=== PATIENT | male | born 1955 | race Caucasian/White ===

== ENCOUNTER 2018-11-06 13:08 | Emergency (ER) | payer SELFPAY ==
[2018-11-06 13:14] VITALS: RESP 18
[2018-11-06] MEDS ORDERED: KETOROLAC 30 MG/ML 1 ML VIAL IVP STA (13:50)
[2018-11-06] MEDS ORDERED: SODIUM CHLORIDE 0.9% 2,000 ML IV STA (13:58)
[2018-11-06] MEDS ORDERED: MORPHINE SULFATE 4 MG/ML SYRINGE IVP STA (13:58)
[2018-11-06] MEDS ORDERED: SODIUM CHLORIDE 0.9% 1,000 ML IV STA (13:58)
[2018-11-06] MEDS ORDERED: ONDANSETRON 4 MG/2 ML VIAL IVP STA (13:59)
--- NOTE | 2018-11-06 14:18 | ED ---
Abdominal Pain HPI - General Chief Complaint: Abdominal Pain Stated Complaint: Back pain Time Seen by Provider: 11/06/18 13:22 Source: patient, RN notes reviewed, old records reviewed Mode of arrival: wheelchair Limitations: no limitations - History of Present Illness Initial Comments: This is a 63 year old male presents with sudden onset of left flank pain and abdominal pain. Patient is here today for his wifes outpatient procedure and developed pain while waintg for his . Patient states he felt nauseated. Patient has no history of kidney stones. - Related Data Previous Rx's Medication Instructions Recorded HYDROcodone/APAP 5-325MG [[place] 1 tab PO Q6HR PRN #10 tab 11/06/18 5-325] Ketorolac [Toradol] 10 mg PO TID #15 tab 11/06/18 Ondansetron Odt [Zofran Odt] 4 mg PO Q8HR PRN #12 tab 11/06/18 Tamsulosin [Flomax] 0.4 mg PO DAILY #15 cap 11/06/18 Allergies Allergy/AdvReac Type Severity Reaction Status Date / Time No Known Allergies Allergy Verified 11/06/18 13:52 Review of Systems ROS Statement: Those systems with pertinent positive or pertinent negative responses have been documented in the HPI. ROS Other: All systems not noted in ROS Statement are negative. Past Medical History Past Medical History: No Reported History History of Any Multi-Drug Resistant Organisms: None Reported Past Surgical History: No Surgical Hx Reported Smoking Status: Never smoker Past Alcohol Use History: Occasional Past Drug Use History: None Reported General Exam - General Exam Comments Initial Comments: 63 year old male, no distress. Limitations: no limitations General appearance: alert, in no apparent distress Head exam: Present: atraumatic, normocephalic, normal inspection Eye exam: Present: normal appearance, PERRL, EOMI. Absent: scleral icterus, conjunctival injection, periorbital swelling ENT exam: Present: normal exam, mucous membranes moist Neck exam: Present: normal inspection. Absent: tenderness, meningismus, lymphadenopathy Respiratory exam: Present: normal lung sounds bilaterally. Absent: respiratory distress, wheezes, rales, rhonchi, stridor Cardiovascular Exam: Present: regular rate, normal rhythm, normal heart sounds. Absent: systolic murmur, diastolic murmur, rubs, gallop, clicks GI/Abdominal exam: Present: soft, tenderness (left CVA tenderness), normal bowel sounds. Absent: distended, guarding, rebound, rigid Extremities exam: Present: normal inspection, full ROM, normal capillary refill. Absent: tenderness, pedal edema, joint swelling, calf tenderness Back exam: Present: normal inspection Neurological exam: Present: alert, oriented X3, CN II-XII intact Psychiatric exam: Present: normal affect, normal mood Skin exam: Present: warm Course Vital Signs 11/06/18 11/06/18 13:12 16:35 Temperature 98.7 F 98.9 F Pulse Rate 64 71 Respiratory 18 18 Rate Blood Pressure 179/90 143/84 O2 Sat by Pulse 99 99 Oximetry Medical Decision Making - Medical Decision Making This is a 63 year old male presents today for left back painand abdominal pain. Patient has CVA tenderness. CT shows 5mm obstructing stone. AFter fluids and pain medication patient is feelting better. Patient will be DC with PCP follow up and urology follow up. Discussed DC with pain medication and flomax. - Lab Data Result diagrams: 11/06/18 13:30 11/06/18 13:30 Lab Results 11/06/18 11/06/18 11/06/18 Range/Units 13:30 13:30 13:30 WBC 8.7 (3.8-10.6) k/uL RBC 5.23 (4.30-5.90) m/uL Hgb 16.1 (13.0-17.5) gm/dL Hct 46.4 (39.0-53.0) % MCV 88.7 (80.0-100.0) fL MCH 30.8 (25.0-35.0) pg MCHC 34.7 (31.0-37.0) g/dL RDW 14.3 (11.5-15.5) % Plt Count 246 (150-450) k/uL Neutrophils % 77 % Lymphocytes % 16 % Monocytes % 4 % Eosinophils % 1 % Basophils % 0 % Neutrophils # 6.7 (1.3-7.7) k/uL Lymphocytes # 1.4 (1.0-4.8) k/uL Monocytes # 0.4 (0-1.0) k/uL Eosinophils # 0.1 (0-0.7) k/uL Basophils # 0.0 (0-0.2) k/uL PT 9.9 (9.0-12.0) sec INR 0.9 (<1.2) APTT 21.7 L (22.0-30.0) sec Sodium 138 (137-145) mmol/L Potassium 4.2 (3.5-5.1) mmol/L Chloride 103 (98-107) mmol/L Carbon Dioxide 22 (22-30) mmol/L Anion Gap 13 mmol/L BUN 14 (9-20) mg/dL Creatinine 1.10 (0.66-1.25) mg/dL Est GFR (CKD-EPI)AfAm 82 (>60 ml/min/1.73 sqM) Est GFR (CKD-EPI)NonAf 71 (>60 ml/min/1.73 sqM) Glucose 175 H (74-99) mg/dL Calcium 10.5 H (8.4-10.2) mg/dL Total Bilirubin 1.1 (0.2-1.3) mg/dL AST 26 (17-59) U/L ALT 33 (21-72) U/L Alkaline Phosphatase 74 (38-126) U/L Total Protein 7.7 (6.3-8.2) g/dL Albumin 4.8 (3.5-5.0) g/dL Amylase 61 (30-110) U/L Lipase 82 (23-300) U/L Urine Color Urine Appearance (Clear) Urine pH (5.0-8.0) Ur Specific [place] (1.001-1.035) Urine Protein (Negative) Urine Glucose (UA) (Negative) Urine Ketones (Negative) Urine Blood (Negative) Urine Nitrite (Negative) Urine Bilirubin (Negative) Urine Urobilinogen (<2.0) mg/dL Ur Leukocyte Esterase (Negative) Urine RBC (0-5) /hpf Urine WBC (0-5) /hpf Urine Mucus (None) /hpf 11/06/18 Range/Units 13:30 WBC (3.8-10.6) k/uL RBC (4.30-5.90) m/uL Hgb (13.0-17.5) gm/dL Hct (39.0-53.0) % MCV (80.0-100.0) fL MCH (25.0-35.0) pg MCHC (31.0-37.0) g/dL RDW (11.5-15.5) % Plt Count (150-450) k/uL Neutrophils % % Lymphocytes % % Monocytes % % Eosinophils % % Basophils % % Neutrophils # (1.3-7.7) k/uL Lymphocytes # (1.0-4.8) k/uL Monocytes # (0-1.0) k/uL Eosinophils # (0-0.7) k/uL Basophils # (0-0.2) k/uL PT (9.0-12.0) sec INR (<1.2) APTT (22.0-30.0) sec Sodium (137-145) mmol/L Potassium (3.5-5.1) mmol/L Chloride (98-107) mmol/L Carbon Dioxide (22-30) mmol/L Anion Gap mmol/L BUN (9-20) mg/dL Creatinine (0.66-1.25) mg/dL Est GFR (CKD-EPI)AfAm (>60 ml/min/1.73 sqM) Est GFR (CKD-EPI)NonAf (>60 ml/min/1.73 sqM) Glucose (74-99) mg/dL Calcium (8.4-10.2) mg/dL Total Bilirubin (0.2-1.3) mg/dL AST (17-59) U/L ALT (21-72) U/L Alkaline Phosphatase (38-126) U/L Total Protein (6.3-8.2) g/dL Albumin (3.5-5.0) g/dL Amylase (30-110) U/L Lipase (23-300) U/L Urine Color Yellow Urine Appearance Cloudy (Clear) Urine pH 5.5 (5.0-8.0) Ur Specific [place] 1.022 (1.001-1.035) Urine Protein Trace H (Negative) Urine Glucose (UA) Trace H (Negative) Urine Ketones Negative (Negative) Urine Blood Large H (Negative) Urine Nitrite Negative (Negative) Urine Bilirubin Negative (Negative) Urine Urobilinogen <2.0 (<2.0) mg/dL Ur Leukocyte Esterase Negative (Negative) Urine RBC >182 H (0-5) /hpf Urine WBC 4 (0-5) /hpf Urine Mucus Few H (None) /hpf - Radiology Data Radiology results: report reviewed Acute obstructive uropathy in the mid left hydroureter nephrosis secondary to a 5 mm left mid ureter calculus. Moderate headaches U ptosis lifting for hepatic masses. Nonobstructing left renal calculus bilateral nonspecific. Her stranding. Disposition Clinical Impression: Ureteral stone Disposition: HOME SELF-CARE Condition: Good Instructions (If sedation given, give patient instructions): Ureteral Stones (ED) Additional Instructions: Patient has a restaurant plenty of fluids. Take meds as prescribed. Return to the emergency department if any alarming signs or symptoms occur. Prescriptions: Tamsulosin [Flomax] 0.4 mg PO DAILY #15 cap HYDROcodone/APAP 5-325MG [[place] 5-325] 1 tab PO Q6HR PRN #10 tab PRN Reason: Pain Ketorolac [Toradol] 10 mg PO TID #15 tab Ondansetron Odt [Zofran Odt] 4 mg PO Q8HR PRN #12 tab PRN Reason: Pain Is patient prescribed a controlled substance at d/c from ED?: Yes If prescribed controlled substance>3 days was MAPS reviewed?: Prescribed <3 Days If opioid is for acute pain is fill amount 7 days or less?: Yes If Rx opioid, was Start Talking consent form obtained?: Yes Referrals: None,Stated [Primary Care Provider] - 1-2 days Richard Jones MD [STAFF PHYSICIAN] - 1-2 days Time of Disposition: 16:10
[2018-11-06 14:21] LABS: Basophils % (A) 0 %; Eosinophils # (A) 0.1 k/uL (0-0.7); Eosinophils % (A) 1 %; HCT 46.4 % (39.0-53.0); HGB 16.1 gm/dL (13.0-17.5); Lymphocytes # (A) 1.4 k/uL (1.0-4.8); Lymphocytes % (A) 16 %; MCH 30.8 pg (25.0-35.0); MCHC 34.7 g/dL (31.0-37.0); MCV 88.7 fL (80.0-100.0); Mean Platelet Volume 8.3; Monocytes # (A) 0.4 k/uL (0-1.0); Monocytes % (A) 4 %; Neutrophils # (A) 6.7 k/uL (1.3-7.7); Neutrophils % (A) 77 %; Platelet Count 246 k/uL (150-450); RBC 5.23 m/uL (4.30-5.90); RDW 14.3 % (11.5-15.5); WBC 8.7 k/uL (3.8-10.6)
[2018-11-06 14:27] LABS: Albumin 4.8 g/dL (3.5-5.0); Appearance,Urine Cloudy (Clear); Bilirubin,Urine Negative (Negative); Blood,Urine Large (Negative); Calcium 10.5 mg/dL (8.4-10.2); Color,Urine Yellow; Glucose,Urine (UA) Trace (Negative); Ketones,Urine Negative (Negative); Leukocyte Esterase,Urine Negative (Negative); Mucus,Urine Few /hpf; Nitrite,Urine Negative (Negative); PH, Urine 5.5 (5.0-8.0); Potassium 4.2 mmol/L (3.5-5.1); Protein,Urine Trace (Negative); RBC,Urine >182 /hpf (0-5); Specific Gravity,Urine 1.022 (1.001-1.035); Total Bilirubin 1.1 mg/dL (0.2-1.3); Total Protein 7.7 g/dL (6.3-8.2); Urobilinogen,Urine <2.0 mg/dL (<2.0); WBC,Urine 4 /hpf (0-5)
--- NOTE | 2018-11-06 14:32 | XR ---
EXAMINATION TYPE: XR KUB DATE OF EXAM: 11/06/2018 COMPARISON: None INDICATION: Flank pain TECHNIQUE: Single view abdomen upright view FINDINGS: There is some linear areas of air which are nonspecific. This is not clearly bowel which is most like ly. There is some normal bowel gas within the colon. Psoas margins are not well visualized. No free air is identified under the diaphragm. No suspicious d ifferential air-fluid levels are present. No organomegaly is present. IMPRESSION: 1. Nonspecific abdomen. There is some linear is not definitely confirmed as bowel gas in the right mi dabdomen, the contralateral side for the patient's pain. Consider CT abdomen pelvis with intravenous contrast for additional workup.
[2018-11-06 14:44] LABS: INR 0.9 (<1.2); Partial Thromboplastin Time 21.7 sec (22.0-30.0); Prothrombin Time 9.9 sec (9.0-12.0)
--- NOTE | 2018-11-06 15:42 | CT ---
EXAMINATION TYPE: CT abdomen pelvis wo con DATE OF EXAM: 11/06/2018 COMPARISON: X-ray of the same date HISTORY: Bilateral pelvic pain, left flank pain CT DLP: 647.5 mGycm Automated exposure control for dose reduction was used. TECHNIQUE: Helical acquisition of images was performed from the lung bases through the pelvis. FINDINGS: LUNG BASES: Minimal bibasilar subsegmental dependent atelectasis. Heart is enlarged. Very small hiata l hernia is seen. LIVER/GB: Hepatic parenchyma is diffusely hypoattenuated in comparison to that of the spleen, most co mmonly seen in hepatic steatosis. This finding limits evaluation for hepatic masses. No gross evidenc e of hepatic mass is seen. No intrahepatic biliary ductal dilatation. No cholelithiasis. PANCREAS: No significant abnormality is seen. SPLEEN: Spleen is prominent in size but does not meet criteria for spinal megaly. Additionally there are benign-appearing splenic granulomas and splenule noted. ADRENALS: No significant abnormality is seen. KIDNEYS: There is mild left hydroureteronephrosis secondary to a meet ureteral calculus measuring 5 m m that is obstructing. There is mild bilateral perinephric fat stranding, left asymmetrically greater than right. There are bilateral renal cysts measuring up to 6.6 cm on the right and 5.7 cm on the le ft. Additional punctate nonobstructing calculus of the left lower pole the kidney is seen within a mi nor calyx. FREE AIR: No free air is visualized REPRODUCTIVE ORGANS: Prostate gland is enlarged and lobulated impressing on the urinary bladder. URINARY BLADDER: No calculi are seen. There is impression on the posterior inferior bladder by an en larged and lobulated prostate gland. ADENOPATHY: No greater than 1 cm short axis lymph node in the abdomen or pelvis. OSSEOUS STRUCTURES: Mild multilevel degenerative changes of the right BOWEL: No dilated large or small bowel. OTHER: There are fat filled patulous bilateral inguinal rings. IMPRESSION: 1. ACUTE OBSTRUCTIVE UROPATHY WITH MILD LEFT HYDROURETERONEPHROSIS SECONDARY TO AN OBSTRUCTING 5 MM L EFT MID URETERAL CALCULUS. 2. MODERATE HEPATIC STEATOSIS, LIMITING EVALUATION FOR HEPATIC MASSES. 3. ADDITIONAL NONOBSTRUCTING LEFT RENAL CALCULUS, BILATERAL NONSPECIFIC PERINEPHRIC FAT STRANDING (LE FT GREATER THAN RIGHT) AND MULTIPLE BILATERAL RENAL CYSTS.
[2018-11-06] MEDS ORDERED: ONDANSETRON 4 MG ODT STARTER PACK 2 TAB BTL PO STA (16:13)
[2018-11-06] MEDS ORDERED: TAMSULOSIN 0.4 MG CAP.ER.24H PO STA (16:13)
[2018-11-06] MEDS ORDERED: ACET/COD 300 MG/30 MG STARTER PACK 6 TAB BTL PO STA (16:13)
[2018-11-06 16:36] VITALS: BP 143/84; PULSE 71; TEMP 98.9
== END 2018-11-06 16:36 | disposition home or self-care (01) ==
LOC: EC 13:08
DX: N13.2 Hydronephrosis with renal and ureteral calculous obstruction (principal)
CPT/HCPCS: 36415; 80053; 82150; 83690; 85025; 85610; 85730; 81001; 74018; 74176; 99285; 96374; 96375 ×2; 96361 ×2; J2270; J2405; J1885; S0119

== ENCOUNTER → 2023-10-24 | Outpatient (CLI) | payer MEDICARE ==
[2023-10-24 15:32] LABS: African American GFR (CKD) 83 (>60 ml/min/1.73 sqM); Blood Urea Nitrogen 16 mg/dL (9-20); Non-African American GFR(CKD) 72 (>60 ml/min/1.73 sqM)
--- NOTE | 2023-10-24 17:04 | CT ---
EXAMINATION TYPE: CT abdomen wo/w con CT DLP: 1621.7 mGycm, Automated exposure control for dose reduction was used. DATE OF EXAM: 10/24/2023 4:05 PM COMPARISON: CT abdomen pelvis most recent from 11/06/2018 CLINICAL INDICATION:Male, 68 years old with history of N28.9 DISORDER KIDNEY R10.84 ABDOMINAL PAIN; R enal cyst history TECHNIQUE: Axial CT abdomen wo/w con;Sagittal and coronal reformats were created on a separate works tation. Contrast used:100 ml mL of Isovue 300 without and with IV Contrast, (none if empty) Oral contrast used: with Oral Contrast (none if empty) FINDINGS: LOWER CHEST: Unremarkable ABDOMEN LIVER: Diffusely hypoattenuating parenchyma. GALLBLADDER AND BILE DUCTS: Unremarkable. PANCREAS: Unremarkable. SPLEEN: Unremarkable. ADRENAL GLANDS: Unremarkable. KIDNEYS AND URETERS: Bilateral renal calculi 2 3 mm on the right and millimeters on the left. No evid ence for obstructive uropathy. Bilateral renal cysts measuring up to 7.2 cm on the right and 6.5 cm l eft. No solid renal lesions visualized. STOMACH AND BOWEL: No evidence of bowel obstruction. Scattered colonic diverticula present. The PERITONEUM/RETROPERITONEUM: No evidence of pneumoperitoneum or free fluid. VASCULATURE: No evidence of aortic aneurysm. MUSCULOSKELETAL: No acute osseous abnormalities LYMPH NODES: No gross evidence for lymphadenopathy. SOFT TISSUE/ABDOMINAL WALL: Unremarkable IMPRESSION: 1. No evidence for obstructive uropathy or renal mass. 2. Bilateral nonobstructing renal calculi. 3. Bilateral simple appearing renal cysts. 4. Hepatic steatosis. 5. Colonic diverticulosis.
== END | disposition home or self-care (01) ==
LOC: RADCTMAIN 14:51
PROVIDERS: ATTEND Family Medicine
DX: N20.0 Calculus of kidney (principal); N28.1 Cyst of kidney, acquired; K76.0 Fatty (change of) liver, not elsewhere classified; K57.30 Diverticulosis of large intestine without perforation or abscess without bleeding
CPT/HCPCS: 82565; 84520; 74170; 36415; Q9967

== ENCOUNTER 2024-03-19 06:54 | Observation (INO) | payer MEDICARE ==
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
[2024-03-19 07:52] LABS: Basophils % (A) 0 %; Eosinophils # (A) 0.1 k/uL (0-0.7); Eosinophils % (A) 1 %; HCT 43.5 % (39.0-53.0); HGB 14.8 gm/dL (13.0-17.5); Lymphocytes # (A) 1.6 k/uL (1.0-4.8); Lymphocytes % (A) 26 %; MCH 30.4 pg (25.0-35.0); MCHC 34.1 g/dL (31.0-37.0); MCV 89.2 fL (80.0-100.0); Mean Platelet Volume 8.3; Monocytes # (A) 0.3 k/uL (0-1.0); Monocytes % (A) 5 %; Neutrophils % (A) 66 %; Platelet Count 224 k/uL (150-450); RBC 4.87 m/uL (4.30-5.90); RDW 12.3 % (11.5-15.5)
[2024-03-19 08:05] LABS: ALT 26 U/L (4-49); AST 28 U/L (17-59); African American GFR (CKD) 89 (>60 ml/min/1.73 sqM); Albumin 4.3 g/dL (3.5-5.0); Alkaline Phosphatase 78 U/L (38-126); Anion Gap 7 mmol/L; Blood Urea Nitrogen 19 mg/dL (9-20); Calcium 9.3 mg/dL (8.4-10.2); Carbon Dioxide 21 mmol/L (22-30); Chloride 105 mmol/L (98-107); Glucose 239 mg/dL (74-99); Lithium 0.3 mmol/L; Non-African American GFR(CKD) 77 (>60 ml/min/1.73 sqM); Potassium 3.7 mmol/L (3.5-5.1); Sodium 133 mmol/L (137-145); Total Protein 6.6 g/dL (6.3-8.2)
[2024-03-19 08:10] LABS: Valproic Acid (Depakene) 35.6 ug/mL
[2024-03-19 09:24] LABS: Appearance,Urine Clear (Clear); Bilirubin,Urine Negative (Negative); Blood,Urine Negative (Negative); Color,Urine Yellow; Glucose,Urine (UA) 3+ (Negative); Ketones,Urine Negative (Negative); Leukocyte Esterase,Urine Negative (Negative); Nitrite,Urine Negative (Negative); PH, Urine 5.5 (5.0-8.0); Protein,Urine Trace (Negative); Specific Gravity,Urine 1.022 (1.001-1.035); Urobilinogen,Urine <2.0 mg/dL (<2.0)
[2024-03-19 09:48] LABS: Amphetamine Screen,Urine Not Detected (NotDetected); Barbiturate Screen,Urine Not Detected (NotDetected); Benzodiazepines Screen,Urine Not Detected (NotDetected); Cocaine Screen,Urine Not Detected (NotDetected); Methadone Screen, Urine Not Detected (NotDetected); Opiate Screen,Urine Not Detected (NotDetected); Oxycodone Screen, Urine Not Detected (NotDetected); Phencyclidine Screen,Urine Not Detected (NotDetected); Tricyclic Antidepressant,Urine Detected (NotDetected); Urn Cannabinoid Scrn Not Detected (NotDetected)
[2024-03-19] MEDS: CALCIUM CARBONATE 500 MG CHEWABLE PO STA (10:50)
[2024-03-19] MEDS: FAMOTIDINE 20 MG TAB PO STA (10:50)
[2024-03-19] MEDS ORDERED: ONDANSETRON 4 MG/2 ML VIAL IVP PRN (13:31)
[2024-03-19] MEDS ORDERED: NALOXONE 0.4 MG/ML 1 ML VIAL IV PRN (13:31)
[2024-03-19] MEDS ORDERED: KETOROLAC 15 MG/ML 1 ML VIAL IVP PRN (13:31)
[2024-03-19] MEDS ORDERED: IBUPROFEN 400 MG TAB PO PRN (13:31)
--- NOTE | 2024-03-19 14:06 | XR ---
EXAMINATION TYPE: XR chest 2V DATE OF EXAM: 03/19/2024 1:56 PM COMPARISON: None TECHNIQUE: XR chest 2V Frontal and lateral views of the chest. CLINICAL INDICATION:Male, 68 years old with history of COVID; FINDINGS: Lungs/Pleura: There is no evidence of pleural effusion, focal consolidation, or pneumothorax. Pulmonary vascularity: Unremarkable. Heart/mediastinum: Cardiomediastinal silhouette is unremarkable. Musculoskeletal: No acute osseous pathology. IMPRESSION: No acute cardiopulmonary disease/process. [facility], , 03/19/2024 2:03 PM
[2024-03-19] MEDS ORDERED: DEXTROSE 50% SYRINGE 50 ML IVP PRN ×2 (15:15)
[2024-03-19 17:30] LABS: Glucose,Whole Blood 258 mg/dL (70-110)
[2024-03-19] MEDS: INSULIN ASPART (NovoLOG) 100 UNIT/ML VIAL SQ SCH (18:01)
[2024-03-19] MEDS: ACETAMINOPHEN TAB 325 MG TAB PO PRN (20:17)
[2024-03-19] MEDS: TAMSULOSIN 0.4 MG CAP.ER.24H PO SCH (20:18)
[2024-03-19] MEDS: LITHIUM CARBONATE ER 450 MG TABLET.ER PO SCH (20:18)
[2024-03-19 21:18] LABS: Glucose,Whole Blood 205 mg/dL (70-110)
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
[2024-03-20 06:15] LABS: Glucose,Whole Blood 219 mg/dL (70-110)
[2024-03-20 08:59] LABS: Basophils # (A) 0.01 X 10*3/uL (0.00-0.10); Basophils % (A) 0.2 %; Eosinophils # (A) 0.09 X 10*3/uL (0.04-0.35); Eosinophils % (A) 1.6 %; HCT 44.8 % (39.6-50.0); HGB 15.7 g/dL (13.0-17.0); Lymphocytes # (A) 1.62 X 10*3/uL (0.90-5.00); Lymphocytes % (A) 27.9 %; MCH 30.5 pg (27.0-32.0); Mean Platelet Volume 11.6 FL (9.5-12.2); Monocytes # (A) 0.43 X 10*3/uL (0.20-1.00); Monocytes % (A) 7.4 %; NRBC Per 100 WBC 0 X 10*3/uL (0.00-0.01); Neutrophils # (A) 3.63 X 10*3/uL (1.80-7.70); Neutrophils % (A) 62.6 %; Platelet Count 222 X 10*3/uL (140-440); RBC 5.15 X 10*6/uL (4.40-5.60); RDW 12.3 % (11.5-14.5)
[2024-03-20] MEDS: metFORMIN 500 MG TAB PO SCH (09:37)
[2024-03-20] MEDS: DIVALPROEX ER 500 MG TAB.ER.24H PO SCH (09:37)
[2024-03-20 10:10] LABS: BUN/Creat Ratio 12.45 Ratio (12.00-20.00); Blood Urea Nitrogen 13.7 mg/dL (9.0-27.0); Chloride 106 mmol/L (96-109); Glucose 263 mg/dL (70-110); Potassium 3.8 mmol/L (3.5-5.5); Sodium 139 mmol/L (135-145)
[2024-03-20 10:11] LABS: ALT 22 U/L (10-49); AST 19 U/L (14-35); Albumin 4.5 g/dL (3.8-4.9); Albumin/Globulin Ratio 1.96 Ratio (1.60-3.17); Alkaline Phosphatase 77 U/L (41-126); Calcium 9.4 mg/dL (8.7-10.3); Carbon Dioxide 20.1 mmol/L (21.6-31.8); Globulin 2.3 g/dL (1.6-3.3); Total Bilirubin 0.6 mg/dL (0.3-1.2); Total Protein 6.8 g/dL (6.2-8.2)
[2024-03-20 12:46] LABS: Glucose,Whole Blood 265 mg/dL (70-110)
[2024-03-20] MEDS: TAMSULOSIN 0.4 MG CAP.ER.24H PO SCH (12:48)
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
--- NOTE | 2024-03-20 13:29 | P.PN ---
Subjective Progress Note Date: 03/20/24 Principal diagnosis: Reason for follow-up is COVID-19 Patient is a 68-year-old male who apparently has been sent to the ER for evaluation of psychiatric evaluation as the patient was having increasing anger and homicidal ideation, patient did tested positive for COVID-19 prompted this consultation. On today's evaluation that is 03/20/2024,the patient remains to be afebrile, patient is on room air not requiring supplemental oxygen and denies any shortness of breath no chest pain or cough.Patient denies having any nausea or vomiting, no abdominal pain and no diarrhea has been reported Patient white count is 5.80, creatinine is 1.1 Objective - Vital Signs Vital signs: Vital Signs Temp 98.1 F 03/20/24 07:02 Pulse 86 03/20/24 07:02 Resp 17 03/20/24 07:02 BP 147/96 03/20/24 07:02 Pulse Ox 100 03/20/24 07:02 FiO2 Intake & Output 03/19/24 03/20/24 03/20/24 18:59 06:59 18:59 Output Total 800 Balance -800 Weight 88.451 kg 88.451 kg Output: Urine 800 Straight 800 - Exam GENERAL DESCRIPTION: An elderly male lying in bed in no distress RESPIRATORY SYSTEM: Unlabored breathing , decreased breath sounds at bases HEART: S1 S2 regular rate and rhythm , ABDOMEN: Soft , no tenderness EXTREMITIES: No edema feet - Labs CBC & Chem 7: 03/20/24 05:13 03/20/24 05:13 Labs: Abnormal Lab Results - Last 24 Hours (Table) 03/19/24 03/19/24 03/20/24 Range/Units 17:19 21:17 05:13 Carbon Dioxide (21.6-31.8) mmol/L Anion Gap (4.00-12.00) mmol/L Glucose (70-110) mg/dL POC Glucose (mg/dL) 258 H 205 H (70-110) mg/dL Hemoglobin A1c 7.6 H (<=6.0) % 03/20/24 03/20/24 03/20/24 Range/Units 05:13 06:14 12:45 Carbon Dioxide 20.1 L (21.6-31.8) mmol/L Anion Gap 12.90 H (4.00-12.00) mmol/L Glucose 263 H (70-110) mg/dL POC Glucose (mg/dL) 219 H 265 H (70-110) mg/dL Hemoglobin A1c (<=6.0) % Assessment and Plan (1) COVID-19 Current Visit: Yes Status: Acute Code(s): U07.1 - COVID-19 SNOMED Code(s): 458458021 Plan: 1patient presented to hospital with anger and homicidal ideation, patient did not have any fever did not have any respiratory symptoms chest x-ray was negative for acute infiltrate however he did tested positive for COVID-19 more of incidental finding as the patient currently not behaving as acute COVID-19 infection 2-no need for any specific therapy for this positive COVID-19 test 3-patient will need 5 days of isolation total from positive test per institution policy Dictation was produced using [employer] dictation software. please excuse any grammatical, word or spelling errors. Time with Patient: Less than 30
[2024-03-20 15:09] LABS: Appearance,Urine Clear (Clear); Bilirubin,Urine Negative (Negative); Blood,Urine Negative (Negative); Color,Urine Colorless; Glucose,Urine (UA) 2+ (Negative); Ketones,Urine Negative (Negative); Leukocyte Esterase,Urine Negative (Negative); Nitrite,Urine Negative (Negative); Protein,Urine Negative (Negative); Specific Gravity,Urine 1.007 (1.001-1.035); Urobilinogen,Urine <2.0 mg/dL (<2.0)
[2024-03-20] MEDS: QUEtiapine 50 MG TAB PO STA (15:25)
[2024-03-20 17:26] LABS: Glucose,Whole Blood 110 mg/dL (70-110)
[2024-03-20 20:45] LABS: Glucose,Whole Blood 126 mg/dL (70-110)
[2024-03-20] MEDS: QUEtiapine 100 MG TAB PO SCH (21:38)
[2024-03-21 06:19] LABS: Glucose,Whole Blood 119 mg/dL (70-110)
[2024-03-21] MEDS: QUEtiapine 50 MG TAB PO PRN (07:18)
--- NOTE | 2024-03-21 08:46 | PN ---
PROGRESS NOTE DATE OF SERVICE: 03/20/2024 SUBJECTIVE: This is a 68-year-old gentleman, who was admitted with COVID-19 and psychosis. He is being closely monitored. No chest pain. No palpitations. No fever. D-dimer is negative. PHYSICAL EXAMINATION: VITAL SIGNS: Pulse is 86, blood pressure ntd, respirations 17. CHEST: Clear. CARDIOVASCULAR: S1, S2. ABDOMEN: Soft. LABORATORY DATA: Reviewed. ASSESSMENT: 1. Acute COVID-19 infection with severe diarrhea. 2. Diabetes mellitus, type 2. 3. Psychosis, bipolar. 4. Hyponatremia. RECOMMENDATIONS AND DISCUSSION: I recommend to continue current medications, continue symptomatic treatment. Otherwise, closely follow with Psych. Continue rest of medications. Monitor blood pressure closely. Further recommendations to follow. ANAL / JEANIEN: [id number] / MTDD
[2024-03-21 11:36] LABS: Glucose,Whole Blood 122 mg/dL (70-110)
--- NOTE | 2024-03-21 13:33 | P.PN ---
Progress Note - Text Progress Note Date: 03/21/24 Interval History: Patient was seen today for psychiatric follow up. he was started on seroquel s cheudled at night time and prn dosing. he has been taking his medications, pt needed dose of Seroquel prn this morning for agitation and manic symptoms. Patient was seen today laying in bed, he was awoken from his nap. He appears to be more polite today with contract technical writer more directable, continues to ramble at times and joke around. States that he is doing a bit better today overall however was fairly nonspecific about his symptoms. Continues to minimize his need for hospitalization, mildly improving insight and judgment. At this time he is denying any suicidal homicidal ideations intent or plan, denying any auditory or visual hallucinations. He claims that he still feeling a bit ill from the COVID infection. According to nurses and tech taking care patient states that patient did not sleep well last night. MENTAL STATUS EXAM: General Appearance: Patient appears to be stated age is somewhat tired today, pleasant, and attempts to be cooperative. Patient appears to have fair hygiene a nd grooming wearing hospital gown with fair eye contact. Behavior: Patient is calmly lying in bed without any agitated behavior. Pleasant Speech: Patient's speech is fluent and nonpressured. Fairly talkative. Rambling, improving mildly Mood/Affect: Patient reports their mood is "fine", affect is congruent Suicidality/Homicidality: Patient denies having any suicidal or homicidal ideation intent or plan. Perceptions: Patient denies any visual hallucinations and denies any auditory hallucinations Though content/process: Less tangential today, more logical. Not endorsing any grandiosity today. Continues to ramble at times Memory and concentration: AOX3, grossly intact for the purposes of this session Judgment and insight: Poor, improving mildly IMPRESSIONS: Bipolar disorder, manic episode Alcohol use disorder mild PLAN: -At this time patient DOES NOT meet criteria for inpatient psychiatric admission due to patient being positive for covid 19. patient will be seen and treated ps ychiatrically while he is on the medical floors. -Would recommend the following medication changes/additions: increase Depakote to 1500 mg qhs + 500 mg daily for mood stabilization. continue with lithium as prescribed. check lithium and depakote levels tomorrow morning. Seroquel 100 mg nightly scheduled for mood stabilization/insomnia. Seroquel as needed 50 mg twice daily for agitation or sleep -CIWA protocol with PRN Ativan for alcohol withdrawal. Continue to monitor vital signs. -Communicated plan to patient's nurse -Will continue to follow along as needed, if patient is improving psychiatri ramila then can possibly sign off in 1-2 days if clinically improving and has a safe discharge plan with psych outpatient follow up at [facility]. -Please contact with any questions.
[2024-03-21 16:52] LABS: Glucose,Whole Blood 180 mg/dL (70-110)
[2024-03-21 20:46] LABS: Glucose,Whole Blood 170 mg/dL (70-110)
[2024-03-21] MEDS: QUEtiapine 100 MG TAB PO SCH (20:46)
[2024-03-21] MEDS: DIVALPROEX ER 500 MG TAB.ER.24H PO SCH (20:46)
--- NOTE | 2024-03-21 21:01 | PN ---
PROGRESS NOTE DATE OF SERVICE: 03/21/2024 SUBJECTIVE: This is a 68-year-old gentleman who was admitted with psychosis and COVID-19. No chest pain. No palpitations. No fever. No diarrhea. OBJECTIVE: VITAL SIGNS: Pulse is 77, blood pressure 140/80, respirations 18. CHEST: Clear to auscultation. CARDIOVASCULAR: S1, S2. ABDOMEN: Soft. NERVOUS SYSTEM: Nonfocal. LABORATORY DATA: Reviewed. ASSESSMENT: 1. Acute COVID-19 infection with severe diarrhea, improving. 2. Diabetes mellitus, type 2. 3. Psychosis, bipolar. 4. Hyponatremia. RECOMMENDATIONS AND DISCUSSION: Recommend to continue current management and continue symptomatic treatment. Closely follow with Psychiatry once the Psychiatry has cleared the patient to be either transferred to psych floor or could be discharged to outpatient setting depending upon the psych determination. MMRICO / JEANIEN: [id number] /
[2024-03-22 06:23] LABS: Glucose,Whole Blood 99 mg/dL (70-110)
[2024-03-22 07:29] LABS: Valproic Acid (Depakene) 93.4 ug/mL
[2024-03-22 08:44] LABS: Glucose,Whole Blood 138 mg/dL (70-110)
[2024-03-22] MEDS: DIVALPROEX ER 500 MG TAB.ER.24H PO SCH (08:47)
[2024-03-22 11:27] LABS: Glucose,Whole Blood 142 mg/dL (70-110)
--- NOTE | 2024-03-22 13:47 | P.PN ---
Progress Note - Text Progress Note Date: 03/22/24 Interval History: Patient was seen today for psychiatric follow up. Patient has been taking his medications as prescribed. Patient's lithium level came back at 1.0 this morning and Depakote level 93 this morning. Patient's nurse states that patient still has a difficult time with sleep last night, poor appetite. Apparently has been complaining of stomachaches, dizziness and tremors. Also complaining of poor appetite. Patient confirmed the symptoms, states that he feels a bit unwell today. He is still dealing with the COVID symptoms as well. We did speak about decreasing his Depakote and also lithium. Continues to state that he is not sleeping at nighttime. He was rambling last today, more goal oriented. mildly improving insight and judgment. At this time he is denying any suicidal homicidal ideations intent or plan, denying any auditory or visual hallucinations. He claims that he still feeling a bit ill from the COVID infection. MENTAL STATUS EXAM: General Appearance: Patient appears to be stated age is less tired today, pleasant, and attempts to be cooperative. Patient appears to have fair hygiene and grooming wearing hospital gown with fair eye contact. Behavior: Patient is calmly lying in bed without any agitated behavior. Pleasant Speech: Patient's speech is fluent and nonpressured. Less talkative and not rambling today Mood/Affect: Patient reports their mood is "not good", affect is congruent Suicidality/Homicidality: Patient denies having any suicidal or homicidal ideation intent or plan. Perceptions: Patient denies any visual hallucinations and denies any auditory hallucinations Though content/process: more logical. Not endorsing any grandiosity today. More goal oriented Memory and concentration: AOX3, grossly intact for the purposes of this session Judgment and insight: Poor, improving mildly IMPRESSIONS: Bipolar disorder, manic episode Alcohol use disorder mild PLAN: -At this time patient DOES NOT meet criteria for inpatient psychiatric admission due to patient being positive for covid 19. patient will be seen and treated psy chiatrically while he is on the medical floors. -Would recommend the following medication changes/additions: decrease Depakote to 1500 mg qhs for mood stabilization. decrease lithium to 300 mg bid. check lithium and depakote levels sunday morning. increase Seroquel 200 mg nightly scheduled for mood stabilization/insomnia. Seroquel as needed 50 mg twice daily for agitation or sleep -WA protocol with PRN Ativan for alcohol withdrawal. Continue to monitor vital signs. -continue symptomatic tx of covid 19 infection. -Communicated plan to patient's nurse -Will continue to follow along as needed -Please contact with any questions.
[2024-03-22] MEDS: PANTOPRAZOLE SODIUM 40 MG GRANULE PKT PO SCH (14:01)
[2024-03-22] MEDS: ONDANSETRON 4 MG/2 ML VIAL IM STA (14:02)
[2024-03-22] MEDS: CALCIUM CARBONATE 500 MG CHEWABLE PO STA (14:04)
[2024-03-22] MEDS: ONDANSETRON 4 MG TAB PO PRN (14:04)
[2024-03-22] MEDS: PANTOPRAZOLE 40 MG TABLET PO STA (14:04)
[2024-03-22 16:48] LABS: Glucose,Whole Blood 109 mg/dL (70-110)
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
[2024-03-22] MEDS: QUEtiapine 200 MG TAB PO SCH (20:52)
[2024-03-22 21:55] LABS: Glucose,Whole Blood 132 mg/dL (70-110)
--- NOTE | 2024-03-23 05:35 | P.PN ---
Subjective Progress Note Date: 03/21/24 Principal diagnosis: Reason for follow-up is COVID-19 Patient is a 68-year-old male who apparently has been sent to the ER for evaluation of psychiatric evaluation as the patient was having increasing anger and homicidal ideation, patient did tested positive for COVID-19 prompted this consultation. On today's evaluation that is 03/21/2024, the patient continues to be afebrile, the patient is on room air and breathing comfortably, the Pt denies having any chest pain or cough, the patient denies having any abdominal pain no vomiting or any diarrhea has been reported by the nursing staff Objective - Vital Signs Vital signs: Vital Signs Temp 97.7 F 03/21/24 07:28 Pulse 77 03/21/24 07:30 Resp 18 03/21/24 07:30 BP 144/89 03/21/24 07:28 Pulse Ox 97 03/21/24 07:28 FiO2 Intake & Output 03/20/24 03/21/24 03/21/24 18:59 06:59 18:59 Output Total 800 700 Balance -800 -700 Output: Urine 800 700 Straight 800 700 Other: Voiding Method Toilet Toilet # Voids 0 - Exam GENERAL DESCRIPTION: An elderly male lying in bed in no distress RESPIRATORY SYSTEM: Unlabored breathing , decreased breath sounds at bases HEART: S1 S2 regular rate and rhythm , ABDOMEN: Soft , no tenderness EXTREMITIES: No edema feet - Labs CBC & Chem 7: 03/20/24 05:13 03/20/24 05:13 Labs: Abnormal Lab Results - Last 24 Hours (Table) 03/20/24 03/20/24 03/21/24 Range/Units 14:50 20:44 06:17 POC Glucose (mg/dL) 126 H 119 H (70-110) mg/dL Urine Glucose (UA) 2+ H (Negative) 03/21/24 Range/Units 11:34 POC Glucose (mg/dL) 122 H (70-110) mg/dL Urine Glucose (UA) (Negative) Assessment and Plan (1) COVID-19 Current Visit: Yes Status: Acute Code(s): U07.1 - COVID-19 SNOMED Code(s): 925843096 Plan: 1patient presented to hospital with anger and homicidal ideation, patient did not have any fever did not have any respiratory symptoms chest x-ray was negative for acute infiltrate however he did tested positive for COVID-19 more of incidental finding as the patient currently not behaving as acute COVID-19 infection 2-no need for any specific therapy for this positive COVID-19 test 3-patient will be on 5 days of isolation total from positive test Dictation was produced using [employer] dictation software. please excuse any grammatical, word or spelling errors. Time with Patient: Less than 30
--- NOTE | 2024-03-23 05:36 | P.PN ---
Subjective Progress Note Date: 03/22/24 Principal diagnosis: Reason for follow-up is COVID-19 Patient is a 68-year-old male who apparently has been sent to the ER for evaluation of psychiatric evaluation as the patient was having increasing anger and homicidal ideation, patient did tested positive for COVID-19 prompted this consultation. On today's evaluation that is 03/22/2024, patient did not have any fever and denies any chills, patient is breathing comfortably on room air, patient with no chest pain or cough patient did not have any abdominal pain nausea vomiting or any loose stools Patient did have a lithium level of 1.0 no CBC or BMP was done Objective - Vital Signs Vital signs: Vital Signs Temp 98.3 F 03/22/24 12:44 Pulse 83 03/22/24 12:44 Resp 17 03/22/24 12:44 BP 122/71 03/22/24 12:44 Pulse Ox 97 03/22/24 12:44 FiO2 Intake & Output 03/21/24 03/22/24 03/22/24 18:59 06:59 18:59 Output Total 430 Balance -430 Output: Urine 430 Other: Voiding Method Toilet # Voids 6 3 - Exam GENERAL DESCRIPTION: An elderly male lying in bed in no distress RESPIRATORY SYSTEM: Unlabored breathing , decreased breath sounds at bases HEART: S1 S2 regular rate and rhythm , ABDOMEN: Soft , no tenderness EXTREMITIES: No edema feet - Labs CBC & Chem 7: 03/20/24 05:13 03/20/24 05:13 Labs: Abnormal Lab Results - Last 24 Hours (Table) 03/21/24 03/21/24 03/22/24 Range/Units 16:50 20:45 08:43 POC Glucose (mg/dL) 180 H 170 H 138 H (70-110) mg/dL 03/22/24 Range/Units 11:26 POC Glucose (mg/dL) 142 H (70-110) mg/dL Assessment and Plan (1) COVID-19 Current Visit: Yes Status: Acute Code(s): U07.1 - COVID-19 SNOMED Code(s): 941611986 Plan: 1patient presented to hospital with anger and homicidal ideation, patient did not have any fever did not have any respiratory symptoms chest x-ray was negative for acute infiltrate however he did tested positive for COVID-19 more of incidental finding as the patient currently not behaving as acute COVID-19 infection 2-no need for any specific therapy for this positive COVID-19 test 3-patient can be transferred to the psych unit after 5 days of isolation here on the medical floor Dictation was produced using [employer] dictation software. please excuse any grammatical, word or spelling errors. Time with Patient: Less than 30
[2024-03-23 07:04] LABS: Glucose,Whole Blood 119 mg/dL (70-110)
[2024-03-23] MEDS: LITHIUM CARBONATE 300 MG CAP PO SCH (09:17)
[2024-03-23 09:26] LABS: Basophils # (A) 0.01 X 10*3/uL (0.00-0.10); Basophils % (A) 0.1 %; Eosinophils # (A) 0.07 X 10*3/uL (0.04-0.35); Eosinophils % (A) 0.6 %; HGB 14.2 g/dL (13.0-17.0); Lymphocytes % (A) 11.4 %; MCH 30.1 pg (27.0-32.0); MCHC 33.8 g/dL (32.0-37.0); Mean Platelet Volume 11.5 FL (9.5-12.2); Monocytes # (A) 0.84 X 10*3/uL (0.20-1.00); Monocytes % (A) 7.3 %; NRBC Per 100 WBC 0 X 10*3/uL (0.00-0.01); Neutrophils # (A) 9.18 X 10*3/uL (1.80-7.70); Neutrophils % (A) 80.3 %; Platelet Count 200 X 10*3/uL (140-440); RBC 4.72 X 10*6/uL (4.40-5.60); RDW 12.2 % (11.5-14.5); WBC 11.44 X 10*3/uL (4.50-10.00)
[2024-03-23 11:44] LABS: Glucose,Whole Blood 116 mg/dL (70-110)
[2024-03-23 12:03] LABS: BUN/Creat Ratio 11.64 Ratio (12.00-20.00); Blood Urea Nitrogen 12.8 mg/dL (9.0-27.0); Calcium 9.2 mg/dL (8.7-10.3); Chloride 102 mmol/L (96-109); Glucose 101 mg/dL (70-110); Sodium 137 mmol/L (135-145)
--- NOTE | 2024-03-23 13:23 | P.PN ---
Progress Note - Text Progress Note Date: 03/23/24 Interval History: Patient was seen today for psychiatric follow up. Patient was resting in bed today, watching television. He was attempting to eat his lunch. States that he still has hardly any taste, attributing it to his COVID infection. Claims that he still feels a bit sick from the infection as well. Claims that he does feel a bit better compared to yesterday, more awake today. Claims that he did feel he slept last night. Less rambling, more goal oriented improving thought conten t and process. mildly improving insight and judgment. Claims he wants to live for his family and future. At this time he is denying any suicidal homicidal ideations intent or plan, denying any auditory or visual hallucinations. MENTAL STATUS EXAM: General Appearance: Patient appears to be stated age is more awake today, pleasant, and attempts to be cooperative. Patient appears to have fair hygiene and grooming wearing hospital gown with fair eye contact. Behavior: Patient is calmly lying in bed without any agitated behavior. Pleasant, improving Speech: Patient's speech is fluent and nonpressured. not rambling today Mood/Affect: Patient reports their mood is "still a bit sick", affect is congruent and improving Suicidality/Homicidality: Patient denies having any suicidal or homicidal ideation intent or plan. Perceptions: Patient denies any visual hallucinations and denies any auditory hallucinations Though content/process: more logical. Not endorsing any grandiosity today. M ore goal oriented, more future oriented Memory and concentration: AOX3, grossly intact for the purposes of this session Judgment and insight: improving mildly IMPRESSIONS: Bipolar disorder, manic episode Alcohol use disorder mild PLAN: -At this time patient DOES NOT meet criteria for inpatient psychiatric admission -Would recommend the following medication changes/additions: Depakote 1500 mg q hs for mood stabilization. lithium 300 mg bid. Seroquel 200 mg nightly scheduled for mood stabilization/insomnia. Seroquel as needed 50 mg twice daily for agitation or sleep -will check another depakote and lithium level tomorrow morning. -CIWA protocol with PRN Ativan for alcohol withdrawal. Continue to monitor vital signs. -continue symptomatic tx of covid 19 infection. -Communicated plan to patient's nurse -at this time psychiatry will sign off and patient can be referred back to [facility] with his psychaitrist Dr Cummins for outpatient follow up. -Please contact with any questions.
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
[2024-03-23 16:49] LABS: Glucose,Whole Blood 140 mg/dL (70-110)
[2024-03-23 20:53] LABS: Glucose,Whole Blood 133 mg/dL (70-110)
[2024-03-24 06:36] LABS: Glucose,Whole Blood 121 mg/dL (70-110)
[2024-03-24 07:17] LABS: African American GFR (CKD) 80 (>60 ml/min/1.73 sqM); Anion Gap 1 mmol/L; Blood Urea Nitrogen 17 mg/dL (9-20); Calcium 9.1 mg/dL (8.4-10.2); Carbon Dioxide 26 mmol/L (22-30); Chloride 107 mmol/L (98-107); Glucose 100 mg/dL (74-99); Non-African American GFR(CKD) 69 (>60 ml/min/1.73 sqM); Sodium 134 mmol/L (137-145)
[2024-03-24 07:22] LABS: Valproic Acid (Depakene) 107.2 ug/mL
--- NOTE | 2024-03-24 07:25 | P.PN ---
Subjective Progress Note Date: 03/23/24 Principal diagnosis: Reason for follow-up is COVID-19 Patient is a 68-year-old male who apparently has been sent to the ER for evaluation of psychiatric evaluation as the patient was having increasing anger and homicidal ideation, patient did tested positive for COVID-19 prompted this consultation. On today's evaluation that is 03/23/2024, Patient is afebrile patient is currently on room air and denies having any shortness of breath, the patient denies any chest pain or cough, the patient denies any nausea vomiting did not have any abdominal pain and no diarrhea. Patient did have a creatinine 1.09 Objective - Vital Signs Vital signs: Vital Signs Temp 99.2 F 03/23/24 19:50 Pulse 81 03/23/24 19:50 Resp 15 03/23/24 19:50 BP 121/69 03/23/24 19:50 Pulse Ox 97 03/23/24 19:50 FiO2 Intake & Output 03/23/24 03/23/24 03/24/24 06:59 18:59 06:59 Output Total 1000 Balance -1000 Output: Urine 1000 Straight 500 Other: # Voids 1 2 # Bowel Movements 0 - Exam GENERAL DESCRIPTION: An elderly male lying in bed in no distress RESPIRATORY SYSTEM: Unlabored breathing , decreased breath sounds at bases HEART: S1 S2 regular rate and rhythm , ABDOMEN: Soft , no tenderness EXTREMITIES: No edema feet - Labs CBC & Chem 7: 03/23/24 05:22 03/24/24 05:51 Labs: Abnormal Lab Results - Last 24 Hours (Table) 03/22/24 03/23/24 03/23/24 Range/Units 21:54 05:22 05:22 WBC 11.44 H (4.50-10.00) X 10*3/uL Neutrophils # 9.18 H (1.80-7.70) X 10*3/uL BUN/Creatinine Ratio 11.64 L (12.00-20.00) Ratio POC Glucose (mg/dL) 132 H (70-110) mg/dL 03/23/24 03/23/24 03/23/24 Range/Units 07:03 11:38 16:45 WBC (4.50-10.00) X 10*3/uL Neutrophils # (1.80-7.70) X 10*3/uL BUN/Creatinine Ratio (12.00-20.00) Ratio POC Glucose (mg/dL) 119 H 116 H 140 H (70-110) mg/dL Assessment and Plan (1) COVID-19 Current Visit: Yes Status: Acute Code(s): U07.1 - COVID-19 SNOMED Code(s): 152536696 Plan: 1patient presented to hospital with anger and homicidal ideation, patient did not have any fever did not have any respiratory symptoms chest x-ray was negative for acute infiltrate however he did tested positive for COVID-19 more of incidental finding as the patient currently not behaving as acute COVID-19 in fection 2-no need for any specific therapy for this positive COVID-19 test, and can be transferred to the psych unit after 5 days of isolation on the medical floor Dictation was produced using [employer] dictation software. please excuse any grammatical, word or spelling errors. Time with Patient: Less than 30
[2024-03-24] MEDS: CALCIUM CARBONATE 500 MG CHEWABLE PO PRN (09:58)
[2024-03-24 11:44] LABS: Glucose,Whole Blood 96 mg/dL (70-110)
[2024-03-24 13:42] VITALS: BMI 29.6
[2024-03-24 14:21] VITALS: BP 122/79; PULSE 70; RESP 18; TEMP 98.7
--- NOTE | 2024-03-24 22:56 | P.PN ---
Subjective Progress Note Date: 03/24/24 Principal diagnosis: Reason for follow-up is COVID-19 Patient is a 68-year-old male who apparently has been sent to the ER for evaluation of psychiatric evaluation as the patient was having increasing anger and homicidal ideation, patient did tested positive for COVID-19 prompted this consultation. On today's evaluation that is 03/24/2024, the patient continues to be afebrile the patient is breathing comfortably on room air, the patient denies having any chest pain shortness of breath no cough no nausea vomiting no abdominal pain or diarrhea. Patient did have creatinine 1.09 no culture done Objective - Vital Signs Vital signs: Vital Signs Temp 99.1 F 03/24/24 06:48 Pulse 71 03/24/24 06:48 Resp 15 03/24/24 06:48 BP 106/69 03/24/24 06:48 Pulse Ox 95 03/24/24 06:48 FiO2 Intake & Output 03/23/24 03/24/24 03/24/24 18:59 06:59 18:59 Output Total 1000 200 950 Balance -1000 -200 -950 Output: Urine 1000 200 950 Straight 500 Other: # Voids 2 # Bowel Movements 0 - Exam GENERAL DESCRIPTION: An elderly male lying in bed in no distress RESPIRATORY SYSTEM: Unlabored breathing , decreased breath sounds at bases HEART: S1 S2 regular rate and rhythm , ABDOMEN: Soft , no tenderness EXTREMITIES: No edema feet - Labs CBC & Chem 7: 03/23/24 05:22 03/24/24 05:51 Labs: Abnormal Lab Results - Last 24 Hours (Table) 03/23/24 03/23/24 03/24/24 Range/Units 16:45 20:51 05:51 Sodium 134 L (137-145) mmol/L Glucose 100 H (74-99) mg/dL POC Glucose (mg/dL) 140 H 133 H (70-110) mg/dL 03/24/24 Range/Units 06:34 Sodium (137-145) mmol/L Glucose (74-99) mg/dL POC Glucose (mg/dL) 121 H (70-110) mg/dL Assessment and Plan (1) COVID-19 Status: Acute Code(s): U07.1 - COVID-19 SNOMED Code(s): 186467514 Plan: 1patient presented to hospital with anger and homicidal ideation, patient did not have any fever did not have any respiratory symptoms chest x-ray was negative for acute infiltrate however he did tested positive for COVID-19 more of incidental finding as the patient currently not behaving as acute COVID-19 infection 2-no need for any specific therapy for this positive COVID-19 test with no need for any antiviral or antibiotics on discharge Dictation was produced using [employer] dictation software. please excuse any grammatical, word or spelling errors. Time with Patient: Less than 30
--- NOTE | 2024-03-27 10:23 | P.DS ---
Providers Date of admission: 03/19/24 15:28 Expected date of discharge: 03/24/24 Attending physician: Kanwal Vora Consults: 03/19/24 13:31 Consult Physician Urgent Consulting Provider: Irving Gutierrez Consult Reason/Comments: Bipolar disorder, manic state, homicidal ideations Do you want consulting provider notified?: Yes 03/19/24 15:14 Consult Physician Routine Consulting Provider: Elda Owen Consult Reason/Comments: covid Do you want consulting provider notified?: Yes Primary care physician: Jennifer Robison Hospital Course: Final diagnosis Acute COVID-19 viral infection with severe diarrhea; symptomatic treatment Heartburn/GERD Diabetes mellitus type 2 Hyponatremia; resolved Psychosis/bipolar disorder Discharge disposition Patient is being discharged in a stable condition with guarded prognosis to home . Patient will follow-up with Dr. Robison in the outpatient setting upon discharge. Patient is to continue with supportive care outpatient. Total time taken is greater than 35 minutes. Hospital course This is a 68-year-old male who was recently admitted with ongoing diarrhea and found to have COVID-19 infection also with significant mental health history with concerns of psychosis and bipolar. Patient evaluated by psychiatry and not inpatient criteria to transfer over to psych. Patient did also have COVID and has been receiving supportive care for this. Patient has been cleared for psych and patient reports he wants to go home. Refer to other consultation notes for further HPI and patient has been instructed to follow-up with primary care provider as well as [facility] outpatient. Currently no reports of chest pain, shortness of breath, or palpitations. Patient is afebrile. No reports of nausea or vomiting and patient is tolerating diet. Patient will be discharged home today. Guarded prognosis and high risk for readmission given patient's continued noncompliance Physical exam: Gen: This is a 68-year-old male who is awake, alert and oriented x 3, well- developed, well-nourished HEENT: Head is atraumatic, normocephalic. Pupils equal, round. Sclerae is anicteric. NECK: Supple. No JVD. No lymphadenopathy. No thyromegaly. LUNGS: Diminished breath sounds bilaterally otherwise clear to auscultation. No wheezes or rhonchi. No intercostal retractions. HEART: Regular rate and rhythm. No murmur. ABDOMEN: Soft. Bowel sounds are present. No masses. No tenderness. EXTREMITIES: No pedal edema. No calf tenderness. NEUROLOGICAL: Patient is awake, alert and oriented x3. Cranial nerves 2 through 12 are grossly intact. Please refer to medication reconciliation sheet for a list of medications. The impression and plan of care has been dictated by Irina Neves, Nurse Practitioner as directed. Dr. Juan MD I have performed a history and examination and MDM of this patient, discussed the same with the dictator, and agree with the dictator's assessment and plan as written ,documented as a scribe. Based on total visit time, I have performed more than 50% of the visit. Patient Condition at Discharge: Fair Plan - Discharge Summary Discharge Rx Participant: No New Discharge Prescriptions: New metFORMIN HCL [Glucophage] 500 mg PO BID #60 tab Arden Carbonate 300 mg PO BID #60 cap Ibuprofen [Motrin] 400 mg PO Q6HR PRN tab PRN Reason: Mild Pain Or Fever > 100.5 QUEtiapine [SEROquel] 200 mg PO HS #30 tab QUEtiapine [SEROquel] 50 mg PO BID PRN #30 tab PRN Reason: Agitation Calcium Carbonate [Tums] 1,000 mg PO QID PRN tab PRN Reason: Heartburn Acetaminophen Tab [Tylenol] 650 mg PO Q6HR PRN tab PRN Reason: Mild Pain Or Fever > 100.5 Continue Tamsulosin [Flomax] 0.4 mg PO HS Divalproex ER [Depakote ER] 1,500 mg PO DAILY Discontinued metFORMIN HCL [metFORMIN HCL ER] 750 mg PO DAILY Arden Carbonate [Arden Carbonate ER] 450 mg PO BID Discharge Medication List Divalproex ER [Depakote ER] 1,500 mg PO DAILY 03/19/24 [History] Tamsulosin [Flomax] 0.4 mg PO HS 03/19/24 [History] Acetaminophen Tab [Tylenol] 650 mg PO Q6HR PRN tab 03/24/24 [Rx] Calcium Carbonate [Tums] 1,000 mg PO QID PRN tab 03/24/24 [Rx] Ibuprofen [Motrin] 400 mg PO Q6HR PRN tab 03/24/24 [Rx] Arden Carbonate 300 mg PO BID #60 cap 03/24/24 [Rx] QUEtiapine [SEROquel] 50 mg PO BID PRN #30 tab 03/24/24 [Rx] QUEtiapine [SEROquel] 200 mg PO HS #30 tab 03/24/24 [Rx] metFORMIN HCL [Glucophage] 500 mg PO BID #60 tab 03/24/24 [Rx] Follow up Appointment(s)/Referral(s): Jennifer Robison DO [Primary Care Provider] - 03/27/24 2:00 pm Activity/Diet/Wound Care/Special Instructions: Activity limited until follow-up Follow-up with psychiatry outpatient Continue taking medications as prescribed Follow-up primary care provider on discharge Discharge/Stand Alone Forms: AA Meetings [place], Outpatient Counseling, In Substance Abuse Facilities Discharge Disposition: HOME SELF-CARE
== END 2024-03-24 14:51 | disposition home or self-care (01) ==
LOC: EC 06:54 → 4SSUR 15:28
PROVIDERS: ADMIT Internal Medicine; ATTEND Internal Medicine
DX: F30.10 Manic episode without psychotic symptoms, unspecified (principal); U07.1 COVID-19; F10.10 Alcohol abuse, uncomplicated; E11.9 Type 2 diabetes mellitus without complications; E87.1 Hypo-osmolality and hyponatremia; K21.9 Gastro-esophageal reflux disease without esophagitis; Z79.84 Long term (current) use of oral hypoglycemic drugs; Z79.899 Other long term (current) drug therapy
CPT/HCPCS: 82075; 99285; 36415; 93005; 85379; 80164 ×3; 80053 ×2; 80048 ×2; 80178 ×3; 85025 ×3; 81003 ×2; 80306; 83036; 87635; 87636; 71046; G0378 ×6

== ENCOUNTER → 2024-03-31 | Outpatient (CLI) | payer MEDICARE ==
--- NOTE | 2024-03-31 23:53 | US ---
EXAMINATION TYPE: US scrotum with doppler. 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 FINDINGS: EXAM MEASUREMENTS: TESTICLES: Right Testicle: 3.7 x 2.4 x 3.2 cm Left Testicle: 3.8 x 2.5 x 3.1 cm EPIDIDYMIS HEAD: Right Epididymis: 0.9 x 1.4 x 0.8 cm Left Epididymis: 1.5 x 0.5 x 0.7 cm Doppler performed to assess for testicular vascularity; good bilateral color flow and spectral wavefo david are seen. There is no evidence of testicular torsion. Presence of hydroceles: Bilateral; small amount of fluid noted, slightly greater on the right Presence of varicoceles: No IMPRESSION: 1. No discrete ultrasound abnormality. [facility], , 03/31/2024 11:50 PM
== END | disposition home or self-care (01) ==
LOC: RADUSWWP 13:31
PROVIDERS: ATTEND Family Medicine
DX: D40.12 Neoplasm of uncertain behavior of left testis (principal)
CPT/HCPCS: 76870; 93975